=== PATIENT | male | born 1985 | race African-American/Black ===

== ENCOUNTER 2020-11-12 00:25 | Emergency (ER) | payer OTHER ==
[2020-11-12] MEDS ORDERED: Lidocaine 1% (PF) 30 ML VIAL ONE (00:33)
[2020-11-12] MEDS ORDERED: Boostrix 0.5 ML (Tdap) VIAL ONE (00:33)
[2020-11-12] MEDS ORDERED: Bacitracin 1 PK ONE (01:40)
== END 2020-11-12 01:58 | disposition home or self-care (01) ==
LOC: NAV ERS 00:25
DX: S61.211A Laceration without foreign body of left index finger without damage to nail, initial encounter (principal); Z23 Encounter for immunization; X58.XXXA Exposure to other specified factors, initial encounter
CPT/HCPCS: 12001; 90471; 90715; J2001